=== PATIENT | female | born 1960 | race Caucasian/White ===

== ENCOUNTER 2018-02-13 18:01 | Emergency (ER) | payer OTHER ==
[2018-02-13 18:19] VITALS: BP 145/54
[2018-02-13] MEDS ORDERED: cephALEXin 250 MG CAPSULE PO STA (20:07)
[2018-02-13] MEDS ORDERED: CEPHALEXIN 250 MG Prepack 8 PO STA (20:07)
--- NOTE | 2018-02-13 20:10 | ED Physician Documentation ---
PD HPI SKIN - Stated complaint Stated Complaint: CYST ON JAW - Chief complaint Chief Complaint: Wound - History obtained from History obtained from: Patient - History of Present Illness Timing - onset: How many days ago (3) Timing - details: Gradual onset, Still present Location: Face Quality / character: Painful, Discolored, Raised Associated symptoms: No: Fever Similar symptoms before: Has not had sx before Recently seen: Not recently seen - Additional information Additional information: Patient is 57 year old female with no significant past medical history who is presenting to the emergency department for facial swelling. patient states that since she went through menapause she has been getting hairs on her face. Patient developed an ingrown hair and the area around it has become larger, hard and painful. Patient states that the pain now radiates down her jaw. Review of Systems Ten Systems: 10 systems reviewed and negative Constitutional: denies: Fever, Chills Skin: reports: Lesions PD PAST MEDICAL HISTORY - Past Medical History Past Medical History: Yes Neuro: Multiple sclerosis - Past Surgical History HEENT: Tonsil/Adenoidectomy - Present Medications Home Medications: Ambulatory Orders Medication Instructions Recorded Confirmed Cephalexin [Keflex] 500 mg PO Q6H 7 Days capsule 02/13/18 Cholecalciferol [Vitamin D3] 10,000 unit 02/13/18 - Allergies Allergies/Adverse Reactions: Allergies Allergy/AdvReac Type Severity Reaction Status Date / Time Penicillins Allergy Unknown Verified 02/13/18 18:19 Sulfa (Sulfonamide Allergy Unknown Verified 02/13/18 18:19 Antibiotics) - Social History Does the pt smoke?: No Smoking Status: Never smoker Does the pt have substance abuse?: No PD ED PE NORMAL - Vitals Vital signs reviewed: Yes - General General: Alert and oriented X 3, No acute distress - HEENT HEENT: Atraumatic, PERRL - Neck Neck: Supple, no meningeal sign - Cardiac Cardiac: RRR - Abdomen Abdomen: Non distended - Neuro Neuro: Alert and oriented X 3, No motor deficit Eye Opening: Spontaneous Motor: Obeys Commands Verbal: Oriented GCS Score: 15 PD ED PE EXPANDED - Derm Derm: Abscess (1cm by 2cm area of erythema and induration on patient's left chin , no fluctuance. ) Results - Vitals Vitals: Vital Signs - 24 hr 02/13/18 18:17 Temperature 36.4 C L Heart Rate 65 Respiratory 16 Rate Blood Pressure 145/54 H O2 Saturation 99 Oxygen O2 Source Room air PD MEDICAL DECISION MAKING - ED course Complexity details: re-evaluated patient, considered differential, d/w patient ED course: Patient was seen and examined at bedside. Patient had a facial abscess, but there was only induration, no fluctuance. Patient was treated with keflex and given detailed discharge and follow up instructions. patient required no further in patient work up at this time. Departure - Departure Disposition: 01 Home, Self Care Clinical Impression: Abscess Condition: Good Instructions: ED Infec Skin Cellulitis Follow-Up: primary,care provider [Other] - Within 1 week Prescriptions: Cephalexin [Keflex] 500 mg PO Q6H 7 Days capsule Comments: Your symptoms today are being caused by a skin infection. You will need to apply warm compresses through out the day. You have also been started on antibiotics today and you will be on them for the next week. You can take motrin or tylenol as needed for pain. If your symptoms don't improve over the next few days you will need to follow up with your doctor or return to the emergency department. Discharge Date/Time: 02/13/18 20:16
== END 2018-02-13 20:16 | disposition home or self-care (01) ==
LOC: ED 18:01
DX: L02.01 Cutaneous abscess of face (principal); G35 Multiple sclerosis
CPT/HCPCS: 99283; A9270